=== PATIENT | female | born 1935 | race Caucasian/White ===

== ENCOUNTER → 2018-07-18 | Outpatient (CLI) | payer OTHER ==
[~2018-07-18] MED LIST: IOPAMIDOL 370 MG/ML 200 ML INFUS..BTL INJ ONE; SODIUM CHLORIDE 0.9% 250ML 500 ML ONE; SODIUM CHLORIDE 0.9% 50ML 50 ML ONE
[2018-07-18 10:09] LABS: CREATININE, SERUM 1.02 mg/dL (0.57-1.11)
--- NOTE | 2018-07-18 11:30 | Diagnostic Imaging Report ---
EXAMINATION: CT of the abdomen and pelvis with contrast. TECHNIQUE: Spiral CT images of the abdomen and pelvis were performed from the lung bases to the lesser trochanters after the intravenous administration of 100 cc of Isovue-370 and the oral administration of water.. Coronal and sagittal reformatted images were obtained. COMPARISON: None. CLINICAL HISTORY:Diaphragmatic hernia DISCUSSION: ABDOMEN/PELVIS: LOWER THORAX:Incompletely visualized left paramedian anterior diaphragmatic hernia containing omental fat and vessels with mild mass effect on the mediastinum. The diaphragmatic defect measures approximately 3 cm transversely as seen on coronal image 57. The herniated fat measures approximately 12 cm in maximum AP dimension seen on series 2 image 5. No herniated bowel loops or evidence of inflammation within the herniated omentum. There is also a left Bochdalek diaphragmatic hernia, also containing only fat and vessels without inflammatory change. The diaphragmatic defect measures approximately 2.6 cm transversely as seen on coronal image 89. Herniated fat measures approximately 8.2 cm in maximum transverse dimension as seen on series 2 image 13. HEPATOBILIARY: Hepatic parenchyma is diffusely hypoattenuating compatible with steatosis. No focal hepatic lesion or intrahepatic biliary ductal dilatation. Status post cholecystectomy with metallic clips in the gallbladder fossa. SPLEEN: No splenomegaly. PANCREAS: No focal masses or ductal dilatation. ADRENALS: No adrenal nodules. KIDNEYS/URETERS: Subcentimeter hypoattenuating lesions projecting from both kidneys, too small to further characterize though likely to represent small cysts. 9 mm nonobstructing right lower pole calculus. No ureteral or bladder calculi. No hydronephrosis. PELVIC ORGANS/BLADDER: The urinary bladder is incompletely distended and suboptimally evaluated. The uterus is not identified and has presumably been removed. No adnexal mass. PERITONEUM/RETROPERITONEUM: No ascites. No pneumoperitoneum. LYMPH NODES: No pelvic sidewall, retroperitoneal, or mesenteric lymphadenopathy. VESSELS: Atherosclerotic calcifications of the abdominal aorta, major branch vessels, and iliac arterial systems without aneurysmal dilatation. Hepatic arterial anatomy is conventional. 2 right renal arteries and a single left renal artery. Portal vein, splenic vein, and central superior mesenteric vein are patent. GI TRACT: Multiple diverticula along the sigmoid and, to a lesser extent, descending colon, without wall thickening or inflammatory change. The appendix is not identified. No right lower quadrant inflammatory change. Stomach is collapsed with prominence of the rugal folds. No small bowel dilatation to suggest obstruction. BONES AND SOFT TISSUE: No osseous destructive lesions. Diffuse osteopenia. Multilevel degenerative disc changes of the lumbar spine. Bone island in the right iliac wing and right acetabulum. Postsurgical changes related to probable mesh repair of anterior abdominal wall hernia (series 2 image 29). IMPRESSION: Complex left paramedian anterior and left posterior diaphragmatic hernias contain omental fat and vascularity, without evidence of inflammatory change. No herniated bowel loops. Hepatic steatosis. Nonobstructing left renal calculus. Large bowel diverticulosis without evidence of diverticulitis. Atherosclerotic vascular disease. Signed by: Dr. Thanh Owen M.D. on 07/18/2018 11:27 AM
== END ==
LOC: CT 09:20
PROVIDERS: ATTEND Thoracic Surgery (Cardiothoracic Vascular Surgery)
DX: K44.9 Diaphragmatic hernia without obstruction or gangrene (principal)
CPT/HCPCS: 36415; 74177; 82565; 84520; 96360; J7050; Q9967